=== PATIENT | female | born 1985 | race Caucasian/White ===

== ENCOUNTER 2016-11-24 08:41 | Emergency (ER) | payer OTHER ==
[2016-11-24 08:54] VITALS: BP 142/81
--- NOTE | 2016-11-24 09:50 | UC ---
Throat Pain/Nasal Bryant HPI - HPI Summary HPI Summary: [address] HAS MILD COUGH. FEVER AND CHILLS TMAX 102.7 YESTERDAY. NO N/V/D. - History of Current Complaint Chief Complaint: UCGeneralIllness Stated Complaint: SORE THROAT Time Seen by Provider: 11/24/16 08:58 Hx Obtained From: Family/Dinkey Brakeman Hx Last Menstrual Period: IUD Onset/Duration: Sudden Onset, Lasting Days, Still Present Severity: Severe Pain Intensity: 10 Pain Scale Used: 0-10 Numeric Cough: None Associated Signs & Symptoms: Positive: Fever - Allergies/Home Medications Allergies/Adverse Reactions: Allergies Allergy/AdvReac Type Severity Reaction Status Date / Time Amoxicillin Allergy Hives/Diff. Verified 11/24/16 08:54 Breathing/I tching Home Medications: Home Medications Ibuprofen [Advil] 400 mg PO Q6HR PRN 11/24/16 [History Confirmed 11/24/16] Levonorgestrel (Iud) [Mirena IUD] 1 applic DAILY 11/24/16 [History Confirmed 09/11] PMH/Surg Hx/FS Hx/Imm Hx Previously Healthy: Yes - Surgical History Surgical History: Yes Surgery Procedure, Year, and Place: x1. gallbladder - Family History Known Family History: Positive: Diabetes Negative: Hypertension, Blood Disorder - Social History Alcohol Use: Occasionally Substance Use Type: None Smoking Status (MU): Never Smoked Tobacco Review of Systems Constitutional: Fever, Chills, Fatigue ENT: Sore Throat Respiratory: Cough Cardiovascular: Negative Gastrointestinal: Negative All Other Systems Reviewed And Are Negative: Yes Physical Exam Triage Information Reviewed: Yes Appearance: Well-Nourished, Ill-Appearing - MILD, Pain Distress - MOD Vital Signs: Initial Vital Signs Temp 97.3 F 11/24/16 08:50 Pulse 95 11/24/16 08:50 Resp 16 11/24/16 08:50 BP 142/81 11/24/16 08:50 Pulse Ox 99 11/24/16 08:50 Eyes: Positive: Conjunctiva Clear ENT: Positive: Hearing grossly normal, Pharyngeal erythema, TMs normal, Tonsillar swelling, Tonsillar exudate Neck: Positive: Supple, Tenderness @ - SPFL CERVICAL LAD, Enlarged Nodes @ - SPFL CERVICAL LAD Respiratory Exam: Normal Cardiovascular: Positive: Tachycardia Abdomen Description: Positive: Soft Musculoskeletal: Positive: No Edema Neurological: Positive: Alert Psychological: Positive: Age Appropriate Behavior Skin: Negative: rashes Diagnostics - Laboratory Diagnostic Studies Completed/Ordered: RAPID STREP POSITIVE Throat Pain/Nasal Course/Dx - Differential Dx/Diagnosis Provider Diagnoses: STREP PHARYNGITIS Discharge - Discharge Plan Condition: Stable Disposition: HOME Prescriptions: Azithromycin [Azithromycin 500 MG TAB] 500 mg PO DAILY #5 tab Patient Education Materials: Strep Throat (ED) Referrals: No Primary Care Phys,NOPCP [Primary Care Provider] - Additional Instructions: OTC CHLORASEPTIC OR CEPACOL LOZENGES FOR SORE THROAT NEEDED ONCE SYMPTOMS RESOLVED - NEW TOOTHBRUSH DO NOT SHARE FOOD, DRINK, UTENSILS CALL THE NUMBER BELOW FOR ASSISTANCE IN ESTABLISHING WITH A PCP An additional resource available to assist in finding the appropriate physician for your health care needs is [facility] ([facility]). You may contact them by calling [phone]. YOUR BP IS ELEVATED (142/81) LIKELY DUE TO YOUR ACUTE CONDITION. BE SURE TO MONITOR THIS FOR RETURN TO NORMAL (120/80) AND SEEK FOLLOW-UP WITH A PCP WITHIN 4 WEEKS IF IT REMAINS ELEVATED.
== END 2016-11-24 09:51 | disposition home or self-care (01) ==
LOC: UCEAST 08:41
DX: J02.0 Streptococcal pharyngitis (principal); Z88.1 Allergy status to other antibiotic agents; Z90.49 Acquired absence of other specified parts of digestive tract
CPT/HCPCS: 87651; 99212; G0463